=== PATIENT | female | born 1985 | race Caucasian/White ===

== ENCOUNTER 2019-02-02 07:21 | Day surgery (SDC) | payer MEDICAID ==
[~2019-02-02] VITALS: Ht 160 cm; Wt 63.5 kg
--- NOTE | ~2019-02-02 | HP ---
PATIENT: HERO GREY MEDICAL RECORD: [id number] ACCOUNT: [id number] LOCATION:[facility] : 87 ADMISSION DATE: 02/02/19 PCP: HAYDE MIDDLETON MD HISTORY AND PHYSICAL EXAMINATION PREOPERATIVE HISTORY AND PHYSICAL HISTORY OF PRESENT ILLNESS: Hero is 33 years old. She is otherwise healthy, but she has been having chronic problems with tonsil stones and chronic pharyngitis. She is being admitted for tonsillectomy and adenoidectomy. PAST MEDICAL HISTORY: Otherwise negative. PAST SURGICAL HISTORY: Includes lumbar back surgery in 2010. CURRENT MEDICATIONS: None. ALLERGIES: No known drug allergies. PHYSICAL EXAMINATION: GENERAL: She is healthy-appearing, developmentally normal. FACE: Normal, symmetric, no lesions. EYES: Sclerae and conjunctivae are normal. EARS: Canals and TMs normal. NOSE: No mass, polyps or drainage. ORAL CAVITY AND OROPHARYNX: A 3+ tonsils with large crypts and tonsilliths. NECK: No masses, no adenopathy. CHEST: Clear. CARDIOVASCULAR: Regular rate and rhythm, no murmur. EXTREMITIES: Normal. IMPRESSION: Chronic caseous pharyngitis. PLAN: Tonsillectomy and adenoidectomy. TRANSINT:[id number] Voice Confirmation ID: [id number] DOCUMENT ID: [id number] HAYDE MIDDLETON MD CC: [id number] DICTATION DATE: 01/30/19 1028 TREATING AND PUMPING SUPERVISOR: 01/30/19 1140 PRE [facility] [address] [place] [address]
--- NOTE | ~2019-02-02 | OP ---
PATIENT NAME: HERO GREY MEDICAL RECORD: [id number] :87 LOCATION:[facility] ADMISSION DATE: SURGEON: HAYDE MANRIQUE MD DATE OF OPERATION: 02/02/2019 PREOPERATIVE DIAGNOSIS: Chronic pharyngitis. POSTOPERATIVE DIAGNOSIS: Chronic pharyngitis. PROCEDURE: Tonsillectomy and adenoidectomy. SURGEON: Hayde Manrique MD ANESTHESIA: General orotracheal. BLOOD LOSS: Less than 5 cc. SPECIMENS: Right and left tonsil. COMPLICATIONS: None. DISPOSITION: Recovery stable. DESCRIPTION OF PROCEDURE: She was brought to the operating room and placed in supine position, sedated, and intubated by anesthesia. The eyes were taped. Table was turned 90 degrees. Head drapes were applied and she was positioned for tonsillectomy. Using a headlight, a Guillermo-Darryn mouth gag was carefully inserted and elevated on a towel on the chest. The palate was examined and palpated. It was normal. 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 The palate was normal to palpation. A red rubber catheter was placed to the right side of the nose and pharynx was grasped with tonsil clamp to retract the soft palate. Using a mirror, nasopharynx was examined. . There was really no adenoid tissue inferiorly. There was just a little bit by the adenoid. Suction cautery on a setting of 30 was used to ablate the adenoid pad tissue up at the choana. The choanae and eustachian orifices were otherwise normal. She does have some large inferior turbinates. The red rubber catheter was let down and removed. The right tonsil was grasped at the superior pole with a straight Allis clamp. Spatula tip cautery on a setting of 8 was used to dissect out the tonsil along its capsule, preserving the anterior and posterior tonsillar pillar. She did have quite a few tonsoliths. Left tonsil was removed in the same fashion. Then, both sides of the nose were irrigated with saline. The pharynx was suctioned. Tonsillar fossae were agitated. Suction cautery on a setting of 18 was used to control minimal oozing. With the field clean and dry, she was awakened, extubated, and transported to recovery in good condition. No complications. TRANSINT:[id number] Voice Confirmation ID: [id number] DOCUMENT ID: [id number] OPERATIVE REPORT [id number] HERO GREY ERIC MD CC: [id number] DICTATION DATE: 02/02/191104 NUTRITIONAL ASSISTANT: 02/02/192039 [facility] 02/02/19 [place] [id number] [place] [id number]
[2019-02-02 07:42] LABS: HEMATOCRIT 38.9 % (36.0-48.0); HEMOGLOBIN 13.3 g/dL (12-16); MCH 31.1 pg (26.0-34.0); MCHC 34.2 g/dL (31.0-37.0); MCV 91.1 fL (80.0-100.0); MEAN PLATELET VOLUME 10.3 fL (7.4-10.4); RBC 4.27 10x6/uL (4.00-5.40); WBC 6.2 10x3/uL (4.8-10.8)
[2019-02-02 09:42] VITALS: BP 119/67; Ht 160 cm; Wt 63.5 kg
[2019-02-02 10:21] LABS: HCG URINE NEGATIVE (NEGATIVE)
== END 2019-02-02 12:32 | disposition home or self-care (01) ==
LOC: D.OPS 07:21 → D.PAN 08:45 → D.OPS 09:30 → D.PAN 09:45 → D.OPS 10:00 → D.PAN 11:00 → D.OPS 12:32
PROVIDERS: Anesthesiology; ATTEND Otolaryngology
DX: J31.2 Chronic pharyngitis (principal)